=== PATIENT | female | born 1995 | race Caucasian/White ===

== ENCOUNTER 2024-03-24 09:40 | Outpatient (CLI) | payer OTHER, SELFPAY ==
--- NOTE | ~2024-03-24 | US_ITS ---
EXAMINATION: US OB <=14 wk fetus w TV DATE: 03/24/2024 10:47 INDICATION: Threatened . TECHNIQUE: Real-time transabdominal and transvaginal pelvic ultrasound was performed. COMPARISON: None. FINDINGS: TRANSABDOMINAL ULTRASOUND: There is an intrauterine gestational sac. The crown rump length jasmeet sures 8.9 cm, which correlates with an estimated gestational age of 14 weeks and 6 day(s) (+/-) 1 wee k(s) and 2 day(s). heart motion is identified measuring 148 beats per minute (bpm) by M-mode Do ppler. The ovaries are not visualized. There is no free fluid in the pelvis. TRANSVAGINAL ULTRASOUND: The cervical length is 3.6 cm which is normal. IMPRESSION: 1. Single living intrauterine gestation with estimated date of delivery of 09/16/2024. Reviewed, dictated and finalized at location A. VITY COORDINATOR IMPRESSION: 1. Single living intrauterine gestation with estimated date of delivery of 08/31.
== END 2024-03-24 09:41 | disposition home or self-care (01) ==
PROVIDERS: PCP Internal Medicine Infectious Disease; Visit Provider Obstetrics & Gynecology
DX: O20.0 Threatened abortion (principal); Z3A.00 Weeks of gestation of pregnancy not specified
CPT/HCPCS: 76801; 76817

== ENCOUNTER 2024-09-26 16:28 | Inpatient (IN) | payer OTHER, SELFPAY ==
[2024-09-26] VITALS (41 sets, daily range): BP systolic 101–126; BP diastolic 50–90; PULSE 57–258; TEMP 36.6–36.8; O2SAT 83–100; BMI 35.2
[2024-09-26 17:28] LABS: Basophils Percent Auto 0.4 % (0.2-1.2); Eosinophils Absolute Auto 0.1 K/mm3 (0-0.3); Eosinophils Percent Auto 0.9 % (0-4.4); Hematocrit 38.5 % (37.0-47.0); Hemoglobin 13.1 g/dL (12.0-15.0); Immature Granulocyte Absolute 0.06 K/mm3 (0.00-0.031); Immature Granulocyte Percent A 0.7 % (0-0.5); Lymphocytes Absolute Auto 1.66 K/mm3 (0.9-3.2); Lymphocytes Percent Auto 19.7 % (18.3-44.2); Mean Corpuscular Volume 88.3 fl (80-100); Mean Platelet Volume 9.6 fl (7.4-10.4); Monocytes Absolute Auto 0.6 K/mm3 (0.1-0.6); Monocytes Percent Auto 7.2 % (2.6-8.5); Neutrophils Percent Auto 71.1 % (45.5-73.1); Platelet Count Result 226 k/mm3 (150-375); Red Blood Count 4.36 M/mm3 (4.2-5.4); Red Cell Distribution Width 13.4 % (11.5-14.5); White Blood Count 8.4 K/mm3 (4.5-10.0)
--- NOTE | 2024-09-26 17:32 | LDADM ---
This patient, Jonel Gagnon, was admitted to Labor/Delivery/Recovery 105 on 09/26/24 at 16:28. Plans for labor, pain management and were discussed with patient. Patient/family oriented to hospital policies and general routines including ID bracelet, bed and alarms, visiting hours, pain management, procedures, bathroom and other care routines, personal items, smoking policy, room service/diet and guest tray routines, security routines, and visiting hours. Patient/Family are encouraged to report perceived risks to care and to ask questions if they do not understand what they are told or what they should do. See OBIX for further documentation.
[2024-09-26 18:18] LABS: Syphilis IgG/IgM Antibody Non-Reactive (Nonreactive)
[2024-09-26 18:22] LABS: OBXCEM ROM Plus Positive (Negative)
[2024-09-26] MEDS: LACTATED RINGERS 1,000 ML 125 ML IV CONT ×2 (22:21→23:38)
[2024-09-26] MEDS: ONDANSETRON INJ 4 MG/2 ML VIAL IV PUSH (22:21)
--- NOTE | 2024-09-26 23:02 | WPDANESEPP ---
Anes - Eval Pre Procedure Procedure: Labor Epidural Date/Time: 09/26/24 23:02 Surgeon: Tristen Preop Diagnosis: Labor Pain Pre Op Diagnosis: IOL Patient Data Age: 29 Gender: F Height: 1.7 m Weight: 102 kg Last Vital Signs Temp 36.7 C 09/26/24 20:51 Pulse 80 09/26/24 23:00 BP 107/67 09/26/24 23:00 Pulse Ox 100 09/26/24 23:01 O2 Del Method Room Air 09/26/24 17:32 Allergies Allergy/AdvReac Type Severity Reaction Status Date / Time No Known Allergies Allergy Verified 09/26/24 17:42 Home Medications ?Medication ?Instructions ?Recorded ?Confirmed ?Type vit no.95-ferrous 1 tablet PO DAILY 08/25/24 09/26/24 History fumarate 28 mg-folic acid 800 mcg tablet () Laboratory Tests 09/26/24 09/26/24 16:43 17:06 WBC 8.4 K/mm3 (4.5-10.0) RBC 4.36 M/mm3 (4.2-5.4) Hgb 13.1 g/dL (12.0-15.0) Hct 38.5 % (37.0-47.0) MCV 88.3 fl (80-100) MCH 30.0 pg (26-34) MCHC 34.0 g/dl (32-36) RDW 13.4 % (11.5-14.5) Plt Count 226 k/mm3 (150-375) MPV 9.6 fl (7.4-10.4) Immature Gran % (Auto) 0.7 H % (0-0.5) Neut % (Auto) 71.1 % (45.5-73.1) Lymph % (Auto) 19.7 % (18.3-44.2) [place] % (Auto) 7.2 % (2.6-8.5) Eos % (Auto) 0.9 % (0-4.4) Baso % (Auto) 0.4 % (0.2-1.2) Lymph # (Auto) 1.66 K/mm3 (0.9-3.2) [place] # (Auto) 0.6 K/mm3 (0.1-0.6) Eos # (Auto) 0.1 K/mm3 (0-0.3) Baso # (Auto) 0.0 K/mm3 (0.0-0.1) Abs Immat Gran (auto) 0.06 H K/mm3 (0.00-0.031) Absolute Neuts (auto) 6.0 K/mm3 (1.3-6.7) Absolute Nucleated RBC 0.000 K/mm3 (0.0-0.012) Nucleated RBC % 0.0 % (0.0-0.2) Membranes Rupture Rom plus positive (Negative) Syphilis IgG/IgM Ab Non-reactive (Nonreactive) Blood Type A Positive Antibody Screen Negative Patient hx anesthesia problems: none Family hx anesthesia problems: none Results Review: All pre-operative results and documents have been reviewed as part of the pre-operative evaluation. FORMERLY [facility], [facility]–1983 Family History Family History (Updated 08/25/24 @ 12:41 by Marisabel William RN) Other Unknown family medical history Social History Social History Smoking status: Never smoker Substance use: never Do You Feel Safe in your Home?: Yes Lack of Transportation: No Lack of Food: Never True Current Housing: I Have Housing Concerned About Future Housing: No Difficulty Paying Gas/Electric Bills: No Difficulty Paying for Meds: No Currently Unemployed: No Education: Bachelor's Degree Difficulty w/ Childcare or Family Care: No Spiritual care concerns: No Exam Day of Procedure 09/26/24 23:02 Patient weight: overweight Heart: regular rate and rhythm Lungs: normal air movement Airway: Mallampati scale class II Neurological: alert and oriented
[2024-09-27] VITALS (145 sets, daily range): BP systolic 95–167; BP diastolic 26–113; PULSE 35–199; RESP 16; TEMP 36.6–37.3; O2SAT 83–100
[2024-09-27] MEDS: PHENYLEPHRINE 1,000 MCG/10 ML SYRINGE 100 MCG IV PUSH ×3 (02:13→02:57)
[2024-09-27] MEDS: METHYLERGONOVINE MALEATE 0.2 MG/ML VIAL IM (08:22)
--- NOTE | 2024-09-27 08:52 | S_PTH ---
PATIENT: Jonel Gagnon LOC: [facility] U#:[id number] AGE/SX: 29/F ROOM: 290 RE09/26/[address]: Spencer Gómez MD : 1995 BED: 00 DIS: 09/29/2024 SPEC #: [id number] RECD: 09/29/24 06:53 STATUS: HEATHER REOtilia #: [id number] MELODIE: 09/27/24 08:[address]: Edilma White DEPT: [facility] Surgical RECD BY: Carrol Cherry ENTERED: 09/29/24 06:53 SP TYPE: Surgical OTHR DR: MD Joaquin SesayMD Tissues: A - Placenta Procedures: Hematoxylin and Eosin Stain Gross and Microscopic Level 5
[2024-09-27] MEDS: OXYTOCIN 30 UNITS/NS 500 ML 30 UNITS/500 ML BAG 125 UNITS IV CONT (09:01)
[2024-09-27] MEDS: IBUPROFEN 600 MG TABLET PO ×3 (09:52→23:46)
--- NOTE | 2024-09-27 10:06 | PM.OBPRVD ---
OB - Vaginal Delivery Note Procedure Delivery date: 09/27/24 Events: Other (PROM in labor) Induction method: None Delivery monitor: External Uterine and Internal FHT Route of delivery: Episiotomy description: None Laceration Description: Vaginal (upper right and lower midline ) and Superficial Delivery repair: vicryl (3-0) Specimen: Yes (placenta with meconium and post dates) Quantitative Blood Loss (ml): 400 Anesthesia type: Epidural Disposition: Floor Complications: Other complications (pp bleeding) Narrative: As the was delivering thick meconium was noted in its mouth and surrounding the face. Nursery nurse was notified. After delivery and repair of the primary midline vaginal laceration, patient continued to have bleeding. She was given 1 dose of methergine and the uterus was explored with no remaining membranes or tissue within the uterus. The fundus was firm. The speculum was placed and the cervix was noted to be without laceration. There was a deeper laceration in the mid right vaginal wall that was bleeding. This was repaired with 3-0 Vicryl and bleeding resolved. [place] Baby Date of : 09/27/24 Gestational Age by Date: 40 (40 6/7) Infant gender: Female Weight (pounds): 8 Weight (ounces): 4 presentation: vertex position: Right Occiput Anterior Placenta delivery description: Spontaneous Cord Vessel Description: 3 Vessels, Delayed Cord Clamping and Other (Tight around shoulder) score one minute: 7 score five minutes: 9
--- NOTE | 2024-09-27 10:11 | PM.OBDSVD ---
DS: Admitting Diagnosis Discharge Date 09/29/2024 <Spencer Gómez MD - Last Filed: 09/29/24 06:41> Admitting Diagnosis Spontaneous rupture of membranes in labor 40 and 5/7 weeks <Edilma White MD - Last Filed: 09/29/24 08:47> DS: Discharge Diagnosis Discharge Diagnosis (1) (normal spontaneous vaginal delivery): Code(s): O80 - Encounter for full-term uncomplicated delivery <Edilma White MD - Last Filed: 09/29/24 08:47> Status: Acute <Edilma White MD - Last Filed: 09/29/24 08:47> OB - DS: Summary OB Procedures : Ultrasound <Edilma White MD - Last Filed: 09/29/24 08:47> OB Procedures Intrapartum: Spontaneous Vag Delivery <Edilma White MD - Last Filed: 09/29/24 08:47> OB Procedures: : None <Edilma White MD - Last Filed: 09/29/24 08:47> Peripartum Data Infant Delivery Method: Natural Vaginal <Edilma White MD - Last Filed: 09/29/24 08:47> Laceration Description: Vaginal (upper right and lower midline ) and Superficial <Edilma White MD - Last Filed: 09/29/24 08:47> Episiotomy description: None <Edilma White MD - Last Filed: 09/29/24 08:47> complications: none <Edilma White MD - Last Filed: 09/29/24 08:47> Status at Discharge Functional status at discharge: independent ambulation <Edilma White MD - Last Filed: 09/29/24 08:47> Overall status at discharge: patient is progressing back to baseline <Edilma White MD - Last Filed: 09/29/24 08:47> Time Spent with Patient Time attestation: Total time spent providing and/or coordinating discharge services: <Edilma White MD - Last Filed: 09/29/24 08:47> DS: Data Data Completed and Pending Pending studies at discharge: Pending at discharge 09/27/24 08:52 Surgical [PTH] Routine <Edilma White MD - Last Filed: 09/29/24 08:47> Labs on day of discharge: Labs from last 24 hours 09/26/24 09/26/24 17:06 16:43 WBC 8.4 RBC 4.36 Hgb 13.1 Hct 38.5 MCV 88.3 MCH 30.0 MCHC 34.0 RDW 13.4 Plt Count 226 MPV 9.6 Immature Gran % (Auto) 0.7 H Neut % (Auto) 71.1 Lymph % (Auto) 19.7 [place] % (Auto) 7.2 Eos % (Auto) 0.9 Baso % (Auto) 0.4 Lymph # (Auto) 1.66 [place] # (Auto) 0.6 Eos # (Auto) 0.1 Baso # (Auto) 0.0 Abs Immat Gran (auto) 0.06 H Absolute Neuts (auto) 6.0 Absolute Nucleated RBC 0.000 Nucleated RBC % 0.0 Membranes Rupture Rom plus positive Syphilis IgG/IgM Ab Non-reactive Blood Type A Positive Antibody Screen Negative <Edilma White MD - Last Filed: 09/29/24 08:47> Discharge Plan Discharge Attending physician on discharge: Spencer Allen <Edilma White MD - Last Filed: 09/29/24 08:47> Spencer Allen <Spencer Gómez MD - Last Filed: 09/29/24 06:41> Discharging Clinician: Spencer Allen <Edilma White MD - Last Filed: 09/29/24 08:47> Spencer Allen <Spencer Gómez MD - Last Filed: 09/29/24 06:41> Anticipated Discharge Date/Time: 09/29/24 10:12 <Edilma White MD - Last Filed: 09/29/24 08:47> Patient Disposition: Home <Edilma White MD - Last Filed: 09/29/24 08:47> Activity: may shower and pelvic rest <Edilma White MD - Last Filed: 09/29/24 08:47> may shower and pelvic rest <Spencer Gómez MD - Last Filed: 09/29/24 06:41> Diet: heart healthy <Edilma White MD - Last Filed: 09/29/24 08:47> heart healthy <Spencer Gómez MD - Last Filed: 09/29/24 06:41> Wound Care Instructions: follow printed instructions <Edilma White MD - Last Filed: 09/29/24 08:47> follow printed instructions <Spencer Gómez MD - Last Filed: 09/29/24 06:41> Discharge Instructions: Education: Mom and Baby Guide Given to: Mother Follow-Up: Call your delivering provider's office for an appointment to be seen in: 5-6 weeks Mom and baby should come to the [facility] for the follow-up appointment. Appointment Date/Time: September 30, 2024 at 11:00 am What to expect at your follow-up visit: Physical Assessment Call [phone] if you are unable to keep your appointment time. BREAST CARE: * Wear a snug supportive bra. * For engorgement discomfort: Breast Feeding: * Apply warm moist washcloths * Express milk as needed to relieve engorgement * Wear loose clothing Bottle Feeding: * May apply ice packs * For sore nipples: * Identify correct latch-on * Apply warm moist washcloths before and after nursing * Air dry nipples after nursing * May apply Lansinoh cream to nipples EPISIOTOMY/PERINEAL CARE: * Until bleeding stops, use your nelly bottle after urinating * Change your pad frequently throughout the day * You may take sitz baths several times a day (fill your bathtub with warm water and soak for 20 minutes.) Do NOT bathe in the water * No tub baths until seen by your physician - You may shower ACTIVITY: * Rest as much as possible. * Do not exercise or lift anything heavier than your baby (such as laundry or other children.) * Avoid stairs or driving as much as possible. * Do not put anything into the vagina. No douching, tampons, or sexual activity until seen by physician. NOTIFY PHYSICIAN IF YOU HAVE ANY QUESTIONS OR IF ANY OF THE FOLLOWING SYMPTOMS OCCUR: * If your episiotomy/perineum becomes red, swollen, or more painful than what you have experienced in the hospital. * If your vaginal bleeding becomes foul smelling. * If your vaginal bleeding becomes more heavy than a period or if your bleeding changes from pink to bright red. However, you may pass an occasional walnut-sized clot once or twice for the first week . * If you experience a sharp, shooting pain in you calves. * If you discover a hard, reddened area on your breast or if you experience flu-like symptoms. DIET: * Eat regular, well-balanced meals. * Drink plenty of fluids daily. If , drink to thirst. <Edilma White MD - Last Filed: 09/29/24 08:47> Patient Instructions: Your Baby (DC) <Edilma White MD - Last Filed: 09/29/24 08:47> Patient Language: Jamaican <Edilma White MD - Last Filed: 09/29/24 08:47> Stand Alone Forms: General Discharge Information <Edilma White MD - Last Filed: 09/29/24 08:47> Follow-up/Referrals: Spencer Allen MD [Physician] - Call for Appointment <Edilma White MD - Last Filed: 09/29/24 08:47> Discharge Medications: Continued PNV cmb#95-ferrous fumarate-FA [] 28 mg iron- 800 mcg tablet 1 tablet PO DAILY <Edilma White MD - Last Filed: 09/29/24 08:47> Date of admission: 09/26/24 16:28 <Edilma White MD - Last Filed: 09/29/24 08:47> Primary Care Provider: Yoel,Joaquin <Edilma White MD - Last Filed: 09/29/24 08:47> Admitting Provider: Spencer Allen <Edilma White MD - Last Filed: 09/29/24 08:47> Attending physician on admission: Spencer Allen <Edilma White MD - Last Filed: 09/29/24 08:47> Condition: Stable <Edilma White MD - Last Filed: 09/29/24 08:47>
[2024-09-27] MEDS: BENZOCAINE 20% AER SPR (*SP) 56 GM CAN 1 SPRAY TOPICAL (11:20)
[2024-09-27] MEDS: WITCH HAZEL 40 PADS 1 PAD TOPICAL (11:20)
--- NOTE | 2024-09-27 11:37 | OBPPTRN ---
Patient transferred to post room #290 via wheelchair. Support person- spouse Anthony present. Oriented to unit, room, information board, rooming in, admission packet and security measures. Patient verbalizes understanding.
--- NOTE | 2024-09-27 12:45 | PC.NURSE ---
Mother attempting to feed baby and RN requested assistance. Mom has baby skin to skin but she is not rooting or showing feeding cues. We moved baby to the crib and she woke readily and had a meconium diaper. Parents educated on transition of stool over the next few days. Baby was placed back on mom's chest in a laid back position. Baby made some good attempts to latch but never was able to maintain a seal. Mom has some areolar edema and the nipple is flattened. After a few minutes of trying to stimulate baby to wake up, we wrapped her up and placed her back in the crib so parents can rest. Encouraged mom and dad to observe for early feeding cues and to offer the breast again if baby is ready. Primary RN updated.
--- NOTE | 2024-09-27 15:00 | PC.NURSE ---
Patient requested assistance with . She already has baby latched to the right breast in a laid back position. Mom states there is some pinching. Baby's lips are observed to be flanged out. Baby let go of the breast and then latched again independently. Mom states that this latch feels better. The latch looks optimal. We reviewed that mom should try to latch again any time that she has consistent pain with nursing. Baby is having good sustained bursts of suckling with brief pauses. We listened for swallows but were unable to hear any. Mom is encouraged to observe and listen to see if she begins to notice swallows. Patient is encouraged to allow baby to determine the length of the feeding. If baby gets sleepy, mom should try to stimulate her to eat for about 15 minutes. Mom is receptive to education provided and dad is present and supportive. Primary RN updated.
[2024-09-27] MEDS: ACETAMINOPHEN 325 MG TABLET 650 MG PO (19:32)
[2024-09-28] MEDS: DOCUSATE SODIUM 100 MG CAPSULE PO ×2 (06:07→17:20)
[2024-09-28] MEDS: IBUPROFEN 600 MG TABLET PO ×3 (06:07→19:58)
[2024-09-28] MEDS: ACETAMINOPHEN 325 MG TABLET 650 MG PO ×3 (06:07→19:58)
[2024-09-28 06:11] LABS: Hematocrit 31.5 % (37.0-47.0); Hemoglobin 10.5 g/dL (12.0-15.0)
[2024-09-28 08:45] VITALS: BP 106/71; PULSE 94; RESP 18; TEMP 36.6; O2SAT 99
[2024-09-28] MEDS: MULTIVIT/MIN/PREN/FOL AC/IRON TABLET 1 TAB PO (08:59)
--- NOTE | 2024-09-28 13:52 | P.PNOB_ITS ---
OB - PN: Subj Subjective Date/time seen: 09/28/24 13:52 Patient comments: no complaints and pain well controlled baby status: doing well OB - PN: Obj Data Labs 09/28/24 06:03 Labs: Laboratory Results - last 24 hr 09/28/24 06:03 Hgb 10.5 L Hct 31.5 L OB - PN A/P Plan day: 1 Plan: routine care Time Spent With Patient Time: Total time spent is greater than 50% in coordination of care (as documented) at patient's floor/unit and/or counseling patient: Exam 2 : Bimanual exam- vagina & uterus: other (Uterus firm, nt @U)
[2024-09-28 19:40] VITALS: BP 113/74; PULSE 85; RESP 16; TEMP 36.6; O2SAT 100
[2024-09-29] MEDS: ACETAMINOPHEN 325 MG TABLET 650 MG PO (04:14)
[2024-09-29] MEDS: IBUPROFEN 600 MG TABLET PO (04:15)
--- NOTE | 2024-09-29 06:41 | PM.OBPNVD ---
OB - PN: Subj Subjective Date/time seen: 09/29/24 06:41 Patient comments: no complaints, pain well controlled and tolerating diet [place] baby status: doing well [place] feeding status: exclusively breast feeding OB - PN: Obj Data Labs 09/28/24 06:03 OB - PN A/P Assessment and Plan (1) (normal spontaneous vaginal delivery): Code(s): O80 - Encounter for full-term uncomplicated delivery Status: Acute Plan home Time Spent With Patient Time: Total time spent is greater than 50% in coordination of care (as documented) at patient's floor/unit and/or counseling patient: Review of Systems Review of Systems: All systems reviewed & are unremarkable except as noted in HPI and below Exam : Bimanual exam- vagina & uterus: other (Uterus firm, nt @U)
[2024-09-29 07:25] VITALS: BP 122/82; PULSE 86; RESP 16; TEMP 36.9; O2SAT 100
[2024-09-29] MEDS: MULTIVIT/MIN/PREN/FOL AC/IRON TABLET 1 TAB PO (08:01)
[2024-09-29] MEDS: DOCUSATE SODIUM 100 MG CAPSULE PO (08:01)
[2024-09-29] MEDS: WITCH HAZEL 40 PADS 1 PAD TOPICAL (08:01)
[2024-09-29] MEDS: TETANUS,DIPHTHERIA,AC PERTUSSIS ADULT (0.5 ML) BOOSTRIX IM (08:02)
--- NOTE | 2024-09-29 08:48 | PC.NURSE ---
Patient viewed the discharge video Mother & Baby Care, The First Two Weeks. Patient was given the opportunity and encouraged to ask questions. Patient verbalized understanding of information shared and has been given the mother/baby guide for home reference.
--- NOTE | 2024-09-29 09:00 | PC.NURSE ---
Attempted to meet with patient regarding discharge. Mother on the phone with geospatial specialist and father states that they don't have any questions or concerns. He states that mom has a breast pump at home and that they do not need a WIC referral. Feeding plan for exclusive added to baby's discharge packet. Patient is encouraged to call the office for any concerns after discharge and she has the Mom/baby guide for reference. Primary RN updated.
[2024-09-30 11:28] VITALS: BP 120/77; PULSE 77; RESP 18; TEMP 36.8; O2SAT 100
== END 2024-09-29 10:15 | disposition home or self-care (01) | DRG 806 ==
LOC: ANHLDR 09-27 10:13 → ANHOB2 09-27 12:45
PROVIDERS: Admitting Provider Obstetrics & Gynecology Gynecology; PCP Internal Medicine Infectious Disease; Visit Provider Obstetrics & Gynecology
DX: O77.0 Labor and delivery complicated by meconium in amniotic fluid (principal); O71.4 Obstetric high vaginal laceration alone; Z37.0 Single live birth; O69.2XX0 Labor and delivery complicated by other cord entanglement, with compression, not applicable or unspecified; Z3A.40 40 weeks gestation of pregnancy
CPT/HCPCS: 36415; 84112; 85014; 85018; 85025; 86593; 86850; 86900; 86901; 88307; 90715; A9270; J2210; J2371; J2405; J2590; J2795; J7120